=== PATIENT | male | born 1970 | race Two or more races ===

== ENCOUNTER 2023-11-27 12:23 | Emergency (ER) | payer OTHER ==
[~2023-11-27] VITALS: Ht 167.6 cm; Wt 79.4 kg
[2023-11-27] MEDS ORDERED: AVAPRO150 MG (12:37)
[2023-11-27 13:28] LABS: HEMATOCRIT 46.2 % (39.0-48.0); HEMOGLOBIN 15.6 g/dL (13-16.00); MEAN CELL VOLUME 86.4 fL (80.0-100.00); MEAN CORPUSCULAR HEMOGLOBIN 29.2 pg (27.00-32.0); MEAN CORPUSCULAR HGB CONC 33.8 g/dl (32.0-36.0); PLATELET COUNT 270 K/uL (150-450); RED BLOOD COUNT 5.35 M/uL (4.00-6.00); RED CELL DISTRIBUTION WIDTH 14.2 % (11.5-14.5)
[2023-11-27 13:49] LABS: ABG PH 7.428 (7.35-7.45); ABG PO2 73.4 mmHg (80-100); ABG pCO2 34.9 mmHg (35-45); BASE EXCESS -1.1 mmol/l; BICARBONATE 22.6 mmol/l (23-25); SaO2 94.9 %; Tco2 23.7 mmol/l
[2023-11-27 13:51] LABS: INR 1.14; PARTIAL THROMBOPLASTIN TIME 30.2 SECONDS (22.0-34.0); PROTHROMBIN TIME 12.3 SECONDS (9.0-11.5)
[2023-11-27 13:58] LABS: ALBUMIN 4.3 gm/dL (3.4-5.0); BILIRUBIN TOTAL 0.65 mg/dL (0.3-1.2); CALCIUM 10.8 mg/dL (8.5-10.1); CREATININE SERUM 1.31 mg/dL (0.70-1.30); GFR 56.81; GLOBULINA 3.8 G/DL (2.4-3.5); POTASSIUM 3.7 mEq/L (3.5-5.1); TOTAL PROTEIN 8.1 gm/dL (6.4-8.2)
[2023-11-27] MEDS ORDERED: ASPIRIN 325 MG TABLET PO NR (14:15)
[2023-11-27] MEDS ORDERED: MORPHINE SULFATE 4 MG/ML VIAL IV ONE (14:15)
[2023-11-27] MEDS ORDERED: LABETALOL HCL 200 MG/40 ML VIAL IV ONE (14:15)
[2023-11-27] MEDS ORDERED: 0.9 % SODIUM CHLORIDE 1,000 ML IV SCH (14:15)
[2023-11-27] MEDS ORDERED: FAMOtidine 10 MG/ML (4ML VIAL) IV ONE (14:15)
[2023-11-27 14:18] LABS: PH,URINE 6.5 (5.0-8.0); URINE APPEARANCE Clear; URINE BILIRRUBIN Negative (NEGATIVE); URINE BLOOD Negative; URINE COLOR Yellow; URINE GLUCOSE Negative (NEGATIVE); URINE KETONE Negative (NEGATIVE); URINE LEUKOCYTE Negative; URINE NITRATE Negative; URINE PROTEIN Negative (NEGATIVE); URINE UROBILINOGEN 0.2 E.U./dl
[2023-11-27 14:20] LABS: URINE RBC 3.2 uL (0.0-20.8)
[2023-11-27 14:23] LABS: URINE BACTERIA 0 uL (0.0-1933); URINE EPITHELIAL CELLS 0.1 uL (0.0-38.8); URINE WBC 0.7 uL (0.0-23.2)
[2023-11-27] MEDS ORDERED: NITROGLYCERIN IN 5 % DEXTROSE 50 MG/250 ML BOTTLE IV STA (14:54)
[2023-11-27 14:56] LABS: allen test SATISFACTORY; o2 21 %; puncture site RADIAL RIGHT
== END 2023-11-27 16:27 | disposition designated cancer center or children's hospital (05) ==
LOC: ER 12:25
PROVIDERS: General Practice
DX: R07.9 Chest pain, unspecified (principal); I10 Essential (primary) hypertension